=== PATIENT | female | born 1935 | race Caucasian/White ===

== ENCOUNTER 2016-09-01 19:42 | Inpatient (IN) | payer MEDICARE, OTHER ==
[2016-09-01 20:37] LABS: Basophils # (A) 0.1 k/uL (0-0.2); Basophils % (A) 1 %; CH 30.6; CHCM 33.5; Eosinophils # (A) 0.3 k/uL (0-0.7); Eosinophils % (A) 2 %; HCT 40.7 % (34.0-46.0); HDW 2.19; HGB 13.5 gm/dL (11.4-16.0); Immature Gran Flag Slight; Luc # (Auto) 0.33; Luc % (Auto) 2; Lymphocytes # (A) 2.7 k/uL (1.0-4.8); Lymphocytes % (A) 18 %; MCH 30.4 pg (25.0-35.0); MCHC 33.3 g/dL (31.0-37.0); MCV 91.5 fL (80.0-100.0); Mean Platelet Volume 7.7; Monocytes # (A) 1.2 k/uL (0-1.0); Monocytes % (A) 8 %; Neutrophils # (A) 10.1 k/uL (1.3-7.7); Neutrophils % (A) 69 %; RBC 4.44 m/uL (3.80-5.40); RDW 12.9 % (11.5-15.5); WBC 14.6 k/uL (3.8-10.6)
--- NOTE | 2016-09-01 20:38 | ED ---
General Adult HPI - General Chief complaint: Recheck/Abnormal Lab/Rx Stated complaint: Possible Sepsis Time Seen by Provider: 09/01/16 19:57 Source: EMS Mode of arrival: EMS Limitations: no limitations - History of Present Illness Initial comments: This patient is 80-year-old lady [facility] to be evaluated for possible mental status change and also that she had a pulse ox reading at 89%. The patient reportedly is currently being treated for urinary tract infection. The paperwork accompanying her documents culture and sensitivity that show sensitivity to the antibiotic she is currently taking. When I interview the patient, she is denying any symptoms at the moment. She denies pain anywhere. She denies dyspnea. She is denying nausea or vomiting. She states she feels well. -: unknown Associated Symptoms: denies other symptoms - Related Data Home Medications Medication Instructions Recorded Confirmed Bisacodyl 10 mg RECTAL DAILY PRN 09/01/16 09/01/16 Divalproex Sodium [Depakote] 500 mg PO BID 09/01/16 09/01/16 Fleet Enema 7-19gm/118ml 1 supp RECTAL DAILY PRN 09/01/16 09/01/16 Guaifenesin/Pseudoephedrne HCl 1 tab PO Q12H PRN 09/01/16 09/01/16 [Mucinex D ER Tablet] Levothyroxine Sodium [Synthroid] 88 mcg PO DAILY 09/01/16 09/01/16 Lisinopril [Prinivil] 10 mg PO DAILY 09/01/16 09/01/16 Magnesium Hydroxide [Milk of 30 ml PO DAILY PRN 09/01/16 09/01/16 Magnesia Concentrate] Multivitamins, Thera [Multivitamin 1 tab PO DAILY 09/01/16 09/01/16 (formulary)] Nystatin 100,000 Unit/gm Powd 1 applic TOPICAL BID 09/01/16 09/01/16 [Mycostatin Powder] Sertraline HCl [Zoloft] 50 mg PO QAM 09/01/16 09/01/16 Simvastatin [Zocor] 20 mg PO HS 09/01/16 09/01/16 Allergies Allergy/AdvReac Type Severity Reaction Status Date / Time No Known Allergies Allergy Verified 09/01/16 20:25 Review of Systems ROS Statement: Those systems with pertinent positive or pertinent negative responses have been documented in the HPI. ROS Other: All systems not noted in ROS Statement are negative. Constitutional: Denies: fever Respiratory: Denies: cough, dyspnea Cardiovascular: Denies: chest pain, orthopnea Gastrointestinal: Denies: abdominal pain, nausea, vomiting Musculoskeletal: Denies: back pain Neurological: Denies: headache, weakness Past Medical History Past Medical History: Diabetes Mellitus, Hyperlipidemia, Myocardial Infarction ( [place]) Additional Past Medical History / Comment(s): pulmonary HTN, chronic ischemic heart disease, falls, angina, aortic stenosis History of Any Multi-Drug Resistant Organisms: None Reported Past Surgical History: Unable to Obtain Past Psychological History: Depression Smoking Status: Never smoker Past Alcohol Use History: None Reported Past Drug Use History: None Reported General Exam Limitations: no limitations General appearance: alert, in no apparent distress, obese Head exam: Present: atraumatic, normocephalic Eye exam: Present: normal appearance. Absent: scleral icterus, conjunctival injection ENT exam: Present: normal oropharynx Neck exam: Present: full ROM. Absent: tenderness, meningismus Respiratory exam: Present: normal lung sounds bilaterally, rales (I lateral bases). Absent: respiratory distress, wheezes, rhonchi, stridor, accessory muscle use, decreased breath sounds, prolonged expiratory Cardiovascular Exam: Present: regular rate, normal rhythm, systolic murmur. Absent: normal heart sounds, diastolic murmur, rubs, gallop GI/Abdominal exam: Present: soft. Absent: distended, tenderness, guarding, rebound, rigid, mass, pulsatile mass, hernia Extremities exam: Present: normal inspection, normal capillary refill. Absent: pedal edema, calf tenderness Neurological exam: Present: alert, CN II-XII intact. Absent: oriented X3 ( Patient is oriented to person and place but could not state the exact date.), motor sensory deficit Psychiatric exam: Present: normal affect Skin exam: Present: warm, dry, intact, normal color. Absent: rash Course Vital Signs 09/01/16 09/01/16 09/01/16 20:03 20:31 21:29 Temperature 98.5 F 98.3 F Pulse Rate 100 101 H Respiratory 18 18 18 Rate Blood Pressure 125/58 117/71 O2 Sat by Pulse 94 L 95 Oximetry 09/01/16 23:16 Temperature Pulse Rate 101 H Respiratory 18 Rate Blood Pressure 104/58 O2 Sat by Pulse 95 Oximetry Medical Decision Making - Lab Data Result diagrams: 09/01/16 20:25 09/01/16 20:25 Lab Results 09/01/16 09/01/16 09/01/16 Range/Units 20:25 20:25 20:25 WBC 14.6 H (3.8-10.6) k/uL RBC 4.44 (3.80-5.40) m/uL Hgb 13.5 (11.4-16.0) gm/dL Hct 40.7 (34.0-46.0) % MCV 91.5 (80.0-100.0) fL MCH 30.4 (25.0-35.0) pg MCHC 33.3 (31.0-37.0) g/dL RDW 12.9 (11.5-15.5) % Plt Count 310 (150-450) k/uL Neutrophils % 69 % Lymphocytes % 18 % Monocytes % 8 % Eosinophils % 2 % Basophils % 1 % Neutrophils # 10.1 H (1.3-7.7) k/uL Lymphocytes # 2.7 (1.0-4.8) k/uL Monocytes # 1.2 H (0-1.0) k/uL Eosinophils # 0.3 (0-0.7) k/uL Basophils # 0.1 (0-0.2) k/uL Manual Slide Review Performed D-Dimer (<0.60) mg/L FEU Sodium (137-145) mmol/L Potassium (3.5-5.1) mmol/L Chloride (98-107) mmol/L Carbon Dioxide (22-30) mmol/L Anion Gap mmol/L BUN (7-17) mg/dL Creatinine (0.52-1.04) mg/dL Est GFR (MDRD) Af Amer (>60 ml/min/1.73 sqM) Est GFR (MDRD) Non-Af (>60 ml/min/1.73 sqM) Glucose (74-99) mg/dL Plasma Lactic Acid Martin 0.8 (0.7-2.0) mmol/L Calcium (8.4-10.2) mg/dL Total Bilirubin (0.2-1.3) mg/dL AST (14-36) U/L ALT (9-52) U/L Alkaline Phosphatase (38-126) U/L Total Creatine Kinase <20 L (30-135) U/L CK-MB (CK-2) 0.4 (0.0-2.4) ng/mL CK-MB (CK-2) Rel Index 0.0 Troponin I 0.030 (0.000-0.034) ng/mL Total Protein (6.3-8.2) g/dL Albumin (3.5-5.0) g/dL Urine Color Urine Appearance (Clear) Urine pH (5.0-8.0) Ur Specific [place] (1.001-1.035) Urine Protein (Negative) Urine Glucose (UA) (Negative) Urine Ketones (Negative) Urine Blood (Negative) Urine Nitrite (Negative) Urine Bilirubin (Negative) Urine Urobilinogen (<2.0) mg/dL Ur Leukocyte Esterase (Negative) Urine WBC (0-5) /hpf Ur Squamous Epith Cells (0-4) /hpf Urine Mucus (None) /hpf 09/01/16 09/01/16 09/01/16 Range/Units 20:25 20:25 22:05 WBC (3.8-10.6) k/uL RBC (3.80-5.40) m/uL Hgb (11.4-16.0) gm/dL Hct (34.0-46.0) % MCV (80.0-100.0) fL MCH (25.0-35.0) pg MCHC (31.0-37.0) g/dL RDW (11.5-15.5) % Plt Count (150-450) k/uL Neutrophils % % Lymphocytes % % Monocytes % % Eosinophils % % Basophils % % Neutrophils # (1.3-7.7) k/uL Lymphocytes # (1.0-4.8) k/uL Monocytes # (0-1.0) k/uL Eosinophils # (0-0.7) k/uL Basophils # (0-0.2) k/uL Manual Slide Review D-Dimer 2.78 H (<0.60) mg/L FEU Sodium 133 L (137-145) mmol/L Potassium 4.6 (3.5-5.1) mmol/L Chloride 100 (98-107) mmol/L Carbon Dioxide 23 (22-30) mmol/L Anion Gap 10 mmol/L BUN 60 H (7-17) mg/dL Creatinine 1.57 H (0.52-1.04) mg/dL Est GFR (MDRD) Af Amer 39 (>60 ml/min/1.73 sqM) Est GFR (MDRD) Non-Af 32 (>60 ml/min/1.73 sqM) Glucose 90 (74-99) mg/dL Plasma Lactic Acid Martin (0.7-2.0) mmol/L Calcium 8.7 (8.4-10.2) mg/dL Total Bilirubin 0.7 (0.2-1.3) mg/dL AST 49 H (14-36) U/L ALT 31 (9-52) U/L Alkaline Phosphatase 63 (38-126) U/L Total Creatine Kinase (30-135) U/L CK-MB (CK-2) (0.0-2.4) ng/mL CK-MB (CK-2) Rel Index Troponin I (0.000-0.034) ng/mL Total Protein 6.2 L (6.3-8.2) g/dL Albumin 2.7 L (3.5-5.0) g/dL Urine Color Yellow Urine Appearance Clear (Clear) Urine pH 5.5 (5.0-8.0) Ur Specific [place] 1.021 (1.001-1.035) Urine Protein Trace H (Negative) Urine Glucose (UA) Negative (Negative) Urine Ketones Negative (Negative) Urine Blood Negative (Negative) Urine Nitrite Negative (Negative) Urine Bilirubin Negative (Negative) Urine Urobilinogen <2.0 (<2.0) mg/dL Ur Leukocyte Esterase Moderate H (Negative) Urine WBC 14 H (0-5) /hpf Ur Squamous Epith Cells <1 (0-4) /hpf Urine Mucus Rare H (None) /hpf Disposition Clinical Impression: Elevated d-dimer Disposition: ADMITTED IP TO THIS HOSP Condition: Fair
[2016-09-01 20:46] LABS: Calcium 8.7 mg/dL (8.4-10.2); Potassium 4.6 mmol/L (3.5-5.1); Total Bilirubin 0.7 mg/dL (0.2-1.3); Total Protein 6.2 g/dL (6.3-8.2)
--- NOTE | 2016-09-01 20:51 | XR ---
EXAMINATION TYPE: XR chest 1V portable DATE OF EXAM: 09/01/2016 8:46 PM HISTORY: Shortness of breath. COMPARISON: 06/26/2012 TECHNIQUE: Single view of the chest is submitted. FINDINGS: Demonstrated are scattered senescent parenchymal change. There is no evidence for focal infiltrate. The heart is stable. Hilar and mediastinal structures are within normal limits. Degenerative changes are seen of the dorsal spine. IMPRESSION: 1. Chronic changes without evidence for acute pulmonary disease.
[2016-09-01 20:57] LABS: Manual Review Performed
[2016-09-01 20:58] LABS: Creatine Kinase <20 U/L (30-135)
[2016-09-01 21:10] LABS: Creatine Kinase MB 0.4 ng/mL (0.0-2.4)
[2016-09-01] MEDS ORDERED: SODIUM CHLORIDE 0.9% 500 ML IV STA (21:30)
[2016-09-01 22:21] LABS: Appearance,Urine Clear (Clear); Bilirubin,Urine Negative (Negative); Glucose,Urine (UA) Negative (Negative); Ketones,Urine Negative (Negative); Leukocyte Esterase,Urine Moderate (Negative); Mucus,Urine Rare /hpf; Nitrite,Urine Negative (Negative); PH, Urine 5.5 (5.0-8.0); Particle Count 5795; Protein,Urine Trace (Negative); Specific Gravity,Urine 1.021 (1.001-1.035); Squamous Epithelial Cell,Urine <1 /hpf (0-4); UA Billing (MACRO vs. MICRO) MICRO; Urobilinogen,Urine <2.0 mg/dL (<2.0); WBC,Urine 14 /hpf (0-5)
[2016-09-01] MEDS ORDERED: ENOXAPARIN 100 MG/ML SYRINGE SQ STA (22:36)
[2016-09-02] MEDS ORDERED: ONDANSETRON 4 MG/2 ML VIAL IVP PRN (00:24)
[2016-09-02] MEDS ORDERED: NALOXONE 0.4 MG/ML 1 ML VIAL IV PRN (00:24)
[2016-09-02] MEDS ORDERED: ACETAMINOPHEN TAB 325 MG TAB PO PRN (00:24)
[2016-09-02] MEDS ORDERED: BISACODYL 10 MG SUPP RECTAL PRN (00:28)
[2016-09-02] MEDS ORDERED: MAGNESIUM HYDROXIDE 2,400 MG/10 ML CUP PO PRN (00:28)
[2016-09-02] MEDS ORDERED: guaiFENesin 600 MG TABLET.ER PO PRN ×2 (00:28→01:10)
[2016-09-02] MEDS ORDERED: ENOXAPARIN 40 MG/0.4 ML SYRINGE SQ SCH (00:30)
[2016-09-02] MEDS: SODIUM CHLORIDE 0.9% 1,000 ML IV SCH ×3 (00:51→18:05)
[2016-09-02] MEDS ORDERED: ENOXAPARIN 100 MG/ML SYRINGE SQ SCH (01:07)
[2016-09-02] MEDS ORDERED: PSEUDOEPHEDRINE 12HR 120 MG TABLET.ER PO PRN (01:09)
[2016-09-02] MEDS ORDERED: LISINOPRIL 10 MG TAB PO SCH (09:00)
[2016-09-02] MEDS: SERTRALINE 50 MG TAB PO SCH (09:05)
[2016-09-02] MEDS: LEVOTHYROXINE 88 MCG TAB PO SCH (09:05)
[2016-09-02] MEDS: DIVALPROEX 500 MG TABLET.DR PO SCH ×2 (09:05→22:42)
[2016-09-02] MEDS: MULTIVITAMINS, THERA 1 EACH TAB PO SCH (09:05)
--- NOTE | 2016-09-02 11:21 | NM ---
EXAMINATION TYPE: NM pul vent and perfuse DATE OF EXAM: 09/02/2016 10:57 AM COMPARISON: Chest x-ray 09/01/2016 HISTORY: Rule out PE. No additional history is provided TECHNIQUE: Utilizing inhalation of 70.9 mCi Tc 99m DTPA aerosol and intravenous injection of 5.5 mCi of Tc 99m MAA, ventilation and perfusion images are acquired post injection in multiple projections. FINDINGS: There is a moderate size fixed defect along the posterior medial segment left lower lobe. In the LPO position and a second moderate fixed defect appears to be present. No triple matched defect is eviden t. IMPRESSION: Intermediate probability for pulmonary embolism.
[2016-09-02] MEDS: NYSTATIN 100,000 UNIT/GM POWD 15 GM TOPICAL SCH ×2 (11:33→22:43)
[2016-09-02 13:22] VITALS: BMI 32.3
--- NOTE | 2016-09-02 18:24 | HP ---
DATE OF ADMISSION: 09/02/2016 PRESENTING COMPLAINT: Altered mental status. HISTORY OF PRESENTING COMPLAINT: This is a 80-year-old patient sent in from [facility], being followed by Dr. Campbell. Patient's chronic stable medical conditions include diabetes mellitus, type 2, hyperlipidemia, hypertension, osteoarthritis, seizure disorder, hypothyroid, aortic stenosis, stroke in 2009 with some weakness on the left side, hiatal hernia, diverticulosis, GI bleeds. Patient is a resident of [facility]. Does use a wheelchair. Patient was sent in because of mental status changes. Patient is just speaking very slowly, not answering much, though awake. Her aide at the bedside is trying to feed the patient. Really not much history can be obtained from the patient. Review of systems cannot be obtained, as the patient is hardly talking. PAST MEDICAL HISTORY: 1. Diabetes mellitus, type 2. 2. Hyperlipidemia. 3. Hypertension. 4. Coronary artery disease. 5. Myocardial infarction. 6. Osteoarthritis. 7. Seizure disorder. 8. Hypothyroid. 9. Polyneuropathy. 10. Currently being treated for UTI. 11. Aortic stenosis. 12. Stroke with some left-sided weakness. 13. Hiatal hernia. 14. Diverticulosis. 15. Arthritis. 16. Psoriasis. PAST SURGICAL HISTORY: 1. Cardiac catheterization ( ) 2. Hysterectomy. 3. Tubal ligation. 4. Bilateral cataract removal. SOCIAL HISTORY: Uses a wheelchair. Needs assistance with ADLs. No smoking. No alcohol. FAMILY HISTORY: Patient cannot tell. HOME MEDICATIONS: 1. Zocor 20 mg at bedtime. 2. Zoloft 50 mg p.o. daily. 3. Nystatin 1 application topically b.i.d. 4. Multivitamin 1 tablet p.o. daily. 5. Magnesium 30 mL p.o. daily p.r.n. 6. Prinivil 10 mg p.o. daily. 7. Synthroid 88 mcg p.o. daily. 8. Mucinex 1 tablet q.12 p.r.n. 9. Fleet enema daily p.r.n. 10. Depakote 500 mg p.o. b.i.d. 11. Dulcolax p.r.n. ALLERGIES: NONE. PHYSICAL EXAMINATION: VITAL SIGNS ON PRESENTATION: Temperature 98.5, pulse 100, respiration 18, blood pressure 120/58, pulse ox 94% on room air. GENERAL APPEARANCE: Well built; BMI of 32.3. Sitting up in bed. Tired, lethargic. EYES: Pupils equal. Conjunctivae normal. HEENT: External appearance of nose and ears normal. Oral cavity dry. NECK: JVD not raised. Mass not palpable. RESPIRATORY: Effort normal. LUNGS: Fair air entry. CARDIOVASCULAR: First and second sounds normal. No edema. ABDOMEN: Soft, nontender. Liver and spleen not palpable. LYMPHATIC: No lymph node palpable in neck or axillae. PSYCHIATRY: Patient does answer simple questions, but speech is rather slow. NEUROLOGICAL: Power on the left side is 4/5. No facial asymmetry. MUSCULOSKELETAL: Evidence of osteoarthritis, especially in hands and knees. INVESTIGATIONS: White count 14.6, hemoglobin 13.5. Potassium 4.6. BUN 16, creatinine 1.57. UA positive for leukocyte esterase, WBC. Patient's BUN and creatinine on 07/01/16 were 24 and 1.14. ASSESSMENT: 1. Patient presented with altered mental status, rather lethargic; probably acute metabolic encephalopathy from underlying urinary tract infection. 2. Possibly acute renal failure. Patient's creatinine has gone up from 1.14 in June of this year to currently to 1.57. This could well be prerenal. 3. Hyperlipidemia. 4. Chronic epilepsy. 5. Hypothyroidism. 6. Essential hypertension. 7. Medical debility; needs assistance. 8. Depression not otherwise specified. PLAN: Urine cultures are pending. Will put the patient on ceftriaxone, give IV fluids. Home medications are resumed. Will discontinue the Sudafed. Also hold off patient's Zestril as renal offending. Patient needs at least 2 nights in the hospital to take care of the metabolic derangement and her overall condition.
[2016-09-02] MEDS: ATORVASTATIN 10 MG TAB PO SCH (22:42)
[2016-09-02] MEDS: ENOXAPARIN 100 MG/ML SYRINGE SQ SCH (22:42)
[2016-09-03] MEDS: LEVOTHYROXINE 88 MCG TAB PO SCH (08:59)
[2016-09-03] MEDS: DIVALPROEX 500 MG TABLET.DR PO SCH ×2 (08:59→20:32)
[2016-09-03] MEDS: SERTRALINE 50 MG TAB PO SCH (08:59)
[2016-09-03] MEDS: MULTIVITAMINS, THERA 1 EACH TAB PO SCH (08:59)
[2016-09-03] MEDS: SODIUM CHLORIDE 0.9% 1,000 ML IV SCH ×5 (09:00→20:36)
[2016-09-03] MEDS: NYSTATIN 100,000 UNIT/GM POWD 15 GM TOPICAL SCH ×2 (09:02→20:32)
[2016-09-03 09:22] LABS: Calcium 8.6 mg/dL (8.4-10.2); Potassium 4.9 mmol/L (3.5-5.1)
[2016-09-03 09:49] LABS: CH 30.5; CHCM 31.9; HCT 38.7 % (34.0-46.0); HDW 2.03; HGB 12.4 gm/dL (11.4-16.0); Immature Gran Flag Marked; MCH 30.8 pg (25.0-35.0); MCHC 32.1 g/dL (31.0-37.0); RBC 4.03 m/uL (3.80-5.40); RDW 13.6 % (11.5-15.5); WBC 14.7 k/uL (3.8-10.6); WBC (Perox) 14.61
[2016-09-03 11:23] LABS: Add Differential Manual Differential
[2016-09-03 11:27] LABS: Nucleated Red Blood Cells 0 /100 WBC (0-0); Total Cells Counted 200
[2016-09-03 11:28] LABS: Toxic Granulation Present
[2016-09-03] MEDS: ATORVASTATIN 10 MG TAB PO SCH (20:32)
[2016-09-03] MEDS: ENOXAPARIN 100 MG/ML SYRINGE SQ SCH (20:32)
[2016-09-04 07:47] VITALS: BP 132/78; PULSE 109; RESP 20; TEMP 98.2
[2016-09-04] MEDS: NYSTATIN 100,000 UNIT/GM POWD 15 GM TOPICAL SCH (07:59)
[2016-09-04] MEDS: DIVALPROEX 500 MG TABLET.DR PO SCH (07:59)
[2016-09-04] MEDS: SERTRALINE 50 MG TAB PO SCH (07:59)
[2016-09-04] MEDS: LEVOTHYROXINE 88 MCG TAB PO SCH (07:59)
[2016-09-04] MEDS: MULTIVITAMINS, THERA 1 EACH TAB PO SCH (08:02)
[2016-09-04] MEDS: SODIUM CHLORIDE 0.9% 1,000 ML IV SCH (08:05)
--- NOTE | 2016-09-04 09:01 | PN ---
DATE OF SERVICE: 09/03/2016 PRESENTING COMPLAINT: Altered mental status. INTERVAL HISTORY: This is a 80-year-old woman who was brought into the emergency department after she was found wandering in the street. Patient is resident of [facility]. Patient is lying in bed, awake, alert. Her mood is flat. She is tearful at times, concerned for her . Patient is calm and cooperative yet tearful during the exam. Review of systems done for constitutional, cardiovascular, GI, pulmonary with relevant findings listed above. CURRENT MEDICATIONS: Zocor, Zoloft, nystatin, magnesium, Prinivil, Synthroid, Mucinex, Fleet's enema, Depakote, Dulcolax suppository. PHYSICAL EXAMINATION: VITAL SIGNS: Temperature 99.2, pulse 92, respirations 18, blood pressure 127/71, oxygen saturation 94% on room air. GENERAL APPEARANCE: Patient lying in bed tired, tearful, conversant. Mood is flat. EYES: Pupils equal. Conjunctivae normal. NECK: JVD not raised. Mass not palpable. Respiratory effort normal. Lungs diminished bases bilaterally fair airway exchange CARDIOVASCULAR: S1, S2 noted and normal. No edema noted. ABDOMEN: Soft, nontender. Liver and spleen are not palpable. PSYCHIATRIC: Patient is able to answer simple questions today. Speech is rather slow. Affect is flat. INVESTIGATIONS: White blood cell count 14.7, BUN 38, creatinine 1.28 improved from yesterday's value. VQ scan from 09/02/2016 reveals a moderate fixed size defect along the posterior medial segment lower left lobe in the LPO position and there is a second moderate fixed defect that appears to be present. No triple matched defect is evident. Overall impression: Intermediate probability for a pulmonary embolus. ASSESSMENT: 1. Patient presented to the emergency department with altered mental status at that time rather lethargic, probably acute metabolic encephalopathy from underlying urinary tract infection. 2. Possible acute renal failure. Creatinine has risen from 1.14 in June of this year to its current level of 1.28. This could be prerenal. 3. Hyperlipidemia. 4. Chronic epilepsy. 5. Hypothyroidism. 6. Essential hypertension. 7. Medical debility. Patient needs assistance. 8. Depression, not otherwise specified. PLAN: Urine cultures currently not showing any growth. Ceftriaxone was discontinued. Family wishes for the patient to be placed back at [facility].
[2016-09-04 09:23] LABS: CHCM 30.9; HCT 36.3 % (34.0-46.0); HDW 2.03; HGB 11.7 gm/dL (11.4-16.0); MCH 31.2 pg (25.0-35.0); MCHC 32.1 g/dL (31.0-37.0); MCV 97.3 fL (80.0-100.0); Mean Platelet Volume 7.4; RBC 3.73 m/uL (3.80-5.40); RDW 13.3 % (11.5-15.5); WBC 17.5 k/uL (3.8-10.6)
[2016-09-04 09:41] LABS: Calcium 8.5 mg/dL (8.4-10.2); Potassium 4.7 mmol/L (3.5-5.1)
[2016-09-04 12:00] LABS: Glucose,Whole Blood 86 mg/dL (75-99)
--- NOTE | 2016-09-04 16:43 | DS ---
DATE OF ADMISSION: 09/02/2016 DATE OF DISCHARGE: FINAL DIAGNOSIS(ES): 1. Acute metabolic encephalopathy from underlying acute urinary tract infection. 2. Acute urinary tract infection, present on admission. 3. Acute renal failure, likely prerenal from decreased oral intake. 4. Hyperlipidemia. 5. Chronic epilepsy. 6. Hypothyroidism. 7. Essential hypertension. 8. Medical debility, needs maintenance assistant. 9. Depression not anxiety, not otherwise specified. HOSPITAL COURSE: This patient with mental status changes, found to have acute metabolic encephalopathy combination of patient is having urinary tract infection and also creatinine going up, had gone up to about 1.7 by the time of discharge. Creatinine did come down to 1.20. Blood pressure is better controlled. Lisinopril has been held. Urine culture was negative. The patient doing much better. Tolerating a diet better at the time of discharge. On examination, LUNGS: Fair air entry. CARDIOVASCULAR: First and second sounds normal. Patient is answering simple questions. Care was discussed with the nurse. Discharge planning with the employment case manager and liaison. Discharge planning more than 35 minutes. Patient's BUN and creatinine now 26/1.20. LABS: CBC, BMP in 3 days. DISCHARGE MEDICATIONS: 1. Dulcolax 10 mg rectal daily p.r.n. 2. Depakote 500 mg p.o. b.i.d. 3. Fleets enema p.r.n. 4. Synthroid 88 mcg a day. 5. Multivitamin 1 tablet p.o. daily. 6. Nystatin topical powder b.i.d. 7. Zoloft 50 mg p.o. daily. 8. Zocor 20 mg p.o. q.h.s. 9. Ceftin 250 mg p.o. b.i.d.; 10 tablets. DISPOSITION: [facility]. Follow-up with Dr. Campbell. LABS: CBC, BMP in 3 days. Feeding with assistance as before.
[2016-09-04] MEDS ORDERED: ENOXAPARIN 100 MG/ML SYRINGE SQ SCH (18:00)
--- NOTE | 2016-10-01 06:08 | PN ---
DATE OF SERVICE: 09/03/2016 ATTENDING NOTE: This patient examined by me on 09/03/16. I reviewed the note of my nurse practitioner, Ms. Lepe. I discussed and agree with the same. Patient has got dementia. Lying in bed. Mood fluctuates a bit. On examination, blood pressure 127/71, pulse 92. On examination, lungs decreased breath sounds. CARDIOVASCULAR: First and second sounds normal. PSYCH: Patient is able to answer simple questions. Labs and investigations are noted. ASSESSMENT: 1. Possibly acute metabolic encephalopathy from underlying urinary tract infection. 2. Possible acute renal failure. PLAN: Ceftriaxone will be discontinued. Looking at patient going to [facility].
== END 2016-09-04 18:45 | DRG 682 ==
LOC: EC 19:42 → 5MS5E 09-02 00:30
PROVIDERS: ADMIT Hospitalist; ATTEND Hospitalist
DX: N17.8 Other acute kidney failure (principal); G93.41 Metabolic encephalopathy; I27.2 Other secondary pulmonary hypertension; E11.42 Type 2 diabetes mellitus with diabetic polyneuropathy; N39.0 Urinary tract infection, site not specified; I69.354 Hemiplegia and hemiparesis following cerebral infarction affecting left non-dominant side; G40.909 Epilepsy, unspecified, not intractable, without status epilepticus; I35.0 Nonrheumatic aortic (valve) stenosis; I10 Essential (primary) hypertension; T46.4X5A Adverse effect of angiotensin-converting-enzyme inhibitors, initial encounter; K57.90 Diverticulosis of intestine, part unspecified, without perforation or abscess without bleeding; K44.9 Diaphragmatic hernia without obstruction or gangrene; E03.9 Hypothyroidism, unspecified; I25.10 Atherosclerotic heart disease of native coronary artery without angina pectoris; I25.2 Old myocardial infarction; E78.5 Hyperlipidemia, unspecified; L40.9 Psoriasis, unspecified; F32.9 Major depressive disorder, single episode, unspecified; R29.6 Repeated falls; M17.0 Bilateral primary osteoarthritis of knee; M19.041 Primary osteoarthritis, right hand; M19.042 Primary osteoarthritis, left hand; Z79.899 Other long term (current) drug therapy; Z91.83 Wandering in diseases classified elsewhere; Z91.81 History of falling; Z98.42 Cataract extraction status, left eye; Z98.41 Cataract extraction status, right eye; Z98.51 Tubal ligation status; Z90.710 Acquired absence of both cervix and uterus; Z87.19 Personal history of other diseases of the digestive system
CPT/HCPCS: 36415; 71010; 78582; 80048; 80053; 80164; 81001; 82550; 82553; 83605; 84484; 85025; 85027; 85379; 87040; 87086; 96372; 99285

== ENCOUNTER 2016-10-15 12:25 | Inpatient (IN) | payer MEDICARE, OTHER ==
[2016-10-15] MEDS ORDERED: HEPARIN SODIUM,PORCINE 5,000 UNIT/ML 1 ML VIAL IV STA (13:25)
[2016-10-15] MEDS ORDERED: HEPARIN SODIUM,PORCINE/D5W PMX 25,000 UNIT in DEXTROSE/WATER 1 500ML.BAG IV SCH (13:25)
[2016-10-15 14:10] LABS: Basophils # (A) 0.1 k/uL (0-0.2); Basophils % (A) 1 %; CH 30.5; CHCM 32.3; Eosinophils # (A) 0.1 k/uL (0-0.7); Eosinophils % (A) 1 %; HCT 35.8 % (34.0-46.0); HDW 2.41; HGB 11.5 gm/dL (11.4-16.0); Luc # (Auto) 0.17; Luc % (Auto) 1; Lymphocytes # (A) 2.7 k/uL (1.0-4.8); Lymphocytes % (A) 22 %; MCH 30.5 pg (25.0-35.0); MCHC 32.2 g/dL (31.0-37.0); MCV 94.6 fL (80.0-100.0); Mean Platelet Volume 7.8; Monocytes # (A) 1.4 k/uL (0-1.0); Monocytes % (A) 12 %; Neutrophils # (A) 7.7 k/uL (1.3-7.7); Neutrophils % (A) 64 %; RBC 3.79 m/uL (3.80-5.40); RDW 13.7 % (11.5-15.5); WBC (Perox) 12.72
--- NOTE | 2016-10-15 14:15 | ED ---
General Adult HPI - General Chief complaint: Extremity Problem,Nontraumatic Stated complaint: DVT Time Seen by Provider: 10/15/16 13:05 Source: patient, EMS, RN notes reviewed, old records reviewed Mode of arrival: EMS Limitations: altered mental status, physical limitation - History of Present Illness Initial comments: patient 81-year-old female with significant past medical history for CVA, dementia, who presents emergency room today by EMS with chief complaint of positive ultrasound for DVT to the left lower extremity. Patient coming from halfway. Patient does have a history of dementia providing little history. She denies any complaints here in the emergency room. She does admit that she's had some swelling here to the lower leg but denies any pain. She denies any shortness of breath. Denies any history of blood clots. EMS did state that they hooked her up to the EKG and felt that they picked up a rhythm of A. fib. Patient has no documented history of this in she herself is unaware of any history of A. fib. She denies any complaints. Patient denies any recent fever, chills, shortness of breath, chest pain, back pain, abdominal pain, nausea or vomiting, numbness or tingling, dysuria or hematuria, constipation or diarrhea, headaches or visual changes, or any other complaints. - Related Data Home Medications Medication Instructions Recorded Confirmed Bisacodyl 10 mg RECTAL DAILY PRN 09/01/16 10/15/16 Divalproex Sodium [Depakote] 500 mg PO BID 09/01/16 10/15/16 Fleet Enema 7-19gm/118ml 1 supp RECTAL DAILY PRN 09/01/16 10/15/16 Levothyroxine Sodium [Synthroid] 88 mcg PO DAILY 09/01/16 10/15/16 Magnesium Hydroxide [Milk of 30 ml PO DAILY PRN 09/01/16 10/15/16 Magnesia Concentrate] Multivitamins, Thera [Multivitamin 1 tab PO DAILY 09/01/16 10/15/16 (formulary)] Nystatin 100,000 Unit/gm Powd 1 applic TOPICAL BID 09/01/16 10/15/16 [Mycostatin Powder] Sertraline HCl [Zoloft] 50 mg PO QAM 09/01/16 10/15/16 Simvastatin [Zocor] 20 mg PO HS 09/01/16 10/15/16 Lisinopril [Prinivil] 10 mg PO DAILY 10/15/16 10/15/16 guaiFENesin [Mucinex] 600 mg PO Q12H PRN 10/15/16 10/15/16 Allergies Allergy/AdvReac Type Severity Reaction Status Date / Time No Known Allergies Allergy Verified 10/15/16 14:25 Review of Systems ROS Statement: Those systems with pertinent positive or pertinent negative responses have been documented in the HPI. ROS Other: All systems not noted in ROS Statement are negative. Past Medical History Past Medical History: Chest Pain / Angina, Diabetes Mellitus, Hyperlipidemia, Hypertension, Myocardial Infarction ([place]), Osteoarthritis ([place]), Pneumonia, Seizure Disorder, Skin Disorder, Thyroid Disorder Additional Past Medical History / Comment(s): NIDDM type II, polyneuropathies, UTI, ischemic heart dx, aortic stenosis, 2009 CVA-pt states slurred speech and weakness L arm/L leg, 2012 TIA, hypothyroidism, hiatal hernia, diverticular dx, lower GI bleed thought d/t divertic dx, arthritis of multiple joints, UTIs, psoriasis, falls, muscle weakness. Last Myocardial Infarction Date:: Unknown History of Any Multi-Drug Resistant Organisms: None Reported Past Surgical History: Heart Catheterization, Hysterectomy, Tubal Ligation Additional Past Surgical History / Comment(s): Bilateral cataract removal, EGD/ colonoscopy 2010. Past Anesthesia/Blood Transfusion Reactions: No Reported Reaction Past Psychological History: Anxiety, Depression Additional Psychological History / Comment(s): Pt resides at [facility]. She has been there since 2009. She uses a wheelchair. She needs assist with ADLs. Smoking Status: Never smoker Past Alcohol Use History: None Reported Past Drug Use History: None Reported - Past Family History Father History Unknown: Yes Family Medical History: Unable to Obtain Mother History Unknown: Yes Family Medical History: Unable to Obtain General Exam - General Exam Comments Initial Comments: General: The patient is awake and alert, in no distress, and does not appear acutely ill. Eye: Pupils are equal, round and reactive to light, extra-ocular movements are intact. No nystagmus. There is normal conjunctiva bilaterally. No signs of icterus. Ears, nose, mouth and throat: There are moist mucous membranes and no oral lesions. Neck: The neck is supple, there is no tenderness or JVD. Cardiovascular: There is a regular rate and rhythm. No murmur, rub or gallop is appreciated. Respiratory: Lungs are clear to auscultation, respirations are non-labored, breath sounds are equal. No wheezes, stridor, rales, or rhonchi. Gastrointestinal: Soft, non-distended, non-tender abdomen without masses or organomegaly noted. There is no rebound or guarding present. No CVA tenderness. Bowel sounds are unremarkable. Musculoskeletal: Normal ROM, no tenderness. Strength 5/5. Sensation intact. Pulses equal bilaterally 2+. patient does have moderate swelling to the left leg when compared bilaterally. Neurological: A&O x 3. CN II-XII intact, There are no obvious motor or sensory deficits. Coordination appears grossly intact. Speech is normal. Skin: Skin is warm and dry and no rashes or lesions are noted. Psychiatric: Cooperative, appropriate mood & affect, normal judgment. Limitations: altered mental status, physical limitation Course Vital Signs 10/15/16 10/15/16 12:31 14:00 Temperature 96.9 F L Pulse Rate 105 H 99 Respiratory 20 18 Rate Blood Pressure 134/64 130/72 O2 Sat by Pulse 98 95 Oximetry EKG Findings - EKG Comments: EKG Findings:: EKG performed at 1312: Does show A. fib with occasional PVC at 94 bpm. QRS is 102. QT/QTc is 348/435. EKG compared to previous EKG on 2012 which shows no evidence of A. fib at that time. Medical Decision Making - Medical Decision Making patient does have an outpatient ultrasound which was performed and does show evidence for DVT to the left leg from left groin to left ankle. Patient EKG performed here today and does show evidence for new onset A. fib. There is no documented history and patient is unaware of any. Clerk Entry Level EKG does not show any evidence for A. fib. Patient has been started on heparin here in the emergency room. She will be admitted to the hospital. - Lab Data Result diagrams: 10/15/16 13:45 10/15/16 13:45 Lab Results 10/15/16 10/15/16 10/15/16 Range/Units 13:45 13:45 13:45 WBC 12.0 H (3.8-10.6) k/uL RBC 3.79 L (3.80-5.40) m/uL Hgb 11.5 (11.4-16.0) gm/dL Hct 35.8 (34.0-46.0) % MCV 94.6 (80.0-100.0) fL MCH 30.5 (25.0-35.0) pg MCHC 32.2 (31.0-37.0) g/dL RDW 13.7 (11.5-15.5) % Plt Count 316 (150-450) k/uL Neutrophils % 64 % Lymphocytes % 22 % Monocytes % 12 % Eosinophils % 1 % Basophils % 1 % Neutrophils # 7.7 (1.3-7.7) k/uL Lymphocytes # 2.7 (1.0-4.8) k/uL Monocytes # 1.4 H (0-1.0) k/uL Eosinophils # 0.1 (0-0.7) k/uL Basophils # 0.1 (0-0.2) k/uL PT (9.0-12.0) sec INR (<1.1) APTT (22.0-30.0) sec Sodium 134 L (137-145) mmol/L Potassium 4.5 (3.5-5.1) mmol/L Chloride 97 L (98-107) mmol/L Carbon Dioxide 27 (22-30) mmol/L Anion Gap 10 mmol/L BUN 27 H (7-17) mg/dL Creatinine 1.05 H (0.52-1.04) mg/dL Est GFR (MDRD) Af Amer >60 (>60 ml/min/1.73 sqM) Est GFR (MDRD) Non-Af 51 (>60 ml/min/1.73 sqM) Glucose 101 H (74-99) mg/dL Calcium 8.9 (8.4-10.2) mg/dL Total Bilirubin 0.7 (0.2-1.3) mg/dL AST 35 (14-36) U/L ALT 24 (9-52) U/L Alkaline Phosphatase 62 (38-126) U/L Total Creatine Kinase <20 L (30-135) U/L CK-MB (CK-2) 0.4 (0.0-2.4) ng/mL CK-MB (CK-2) Rel Index 0.0 Troponin I 0.019 (0.000-0.034) ng/mL Total Protein 6.3 (6.3-8.2) g/dL Albumin 2.7 L (3.5-5.0) g/dL Urine Color Urine Appearance (Clear) Urine pH (5.0-8.0) Ur Specific [place] (1.001-1.035) Urine Protein (Negative) Urine Glucose (UA) (Negative) Urine Ketones (Negative) Urine Blood (Negative) Urine Nitrite (Negative) Urine Bilirubin (Negative) Urine Urobilinogen (<2.0) mg/dL Ur Leukocyte Esterase (Negative) Urine RBC (0-5) /hpf Urine WBC (0-5) /hpf Urine WBC Clumps (None) /hpf Ur Squamous Epith Cells (0-4) /hpf Urine Bacteria (None) /hpf 10/15/16 10/15/16 Range/Units 13:45 14:19 WBC (3.8-10.6) k/uL RBC (3.80-5.40) m/uL Hgb (11.4-16.0) gm/dL Hct (34.0-46.0) % MCV (80.0-100.0) fL MCH (25.0-35.0) pg MCHC (31.0-37.0) g/dL RDW (11.5-15.5) % Plt Count (150-450) k/uL Neutrophils % % Lymphocytes % % Monocytes % % Eosinophils % % Basophils % % Neutrophils # (1.3-7.7) k/uL Lymphocytes # (1.0-4.8) k/uL Monocytes # (0-1.0) k/uL Eosinophils # (0-0.7) k/uL Basophils # (0-0.2) k/uL PT 11.2 (9.0-12.0) sec INR 1.1 (<1.1) APTT 24.5 (22.0-30.0) sec Sodium (137-145) mmol/L Potassium (3.5-5.1) mmol/L Chloride (98-107) mmol/L Carbon Dioxide (22-30) mmol/L Anion Gap mmol/L BUN (7-17) mg/dL Creatinine (0.52-1.04) mg/dL Est GFR (MDRD) Af Amer (>60 ml/min/1.73 sqM) Est GFR (MDRD) Non-Af (>60 ml/min/1.73 sqM) Glucose (74-99) mg/dL Calcium (8.4-10.2) mg/dL Total Bilirubin (0.2-1.3) mg/dL AST (14-36) U/L ALT (9-52) U/L Alkaline Phosphatase (38-126) U/L Total Creatine Kinase (30-135) U/L CK-MB (CK-2) (0.0-2.4) ng/mL CK-MB (CK-2) Rel Index Troponin I (0.000-0.034) ng/mL Total Protein (6.3-8.2) g/dL Albumin (3.5-5.0) g/dL Urine Color Yellow Urine Appearance Cloudy H (Clear) Urine pH 6.5 (5.0-8.0) Ur Specific [place] 1.013 (1.001-1.035) Urine Protein 1+ H (Negative) Urine Glucose (UA) Negative (Negative) Urine Ketones Negative (Negative) Urine Blood Trace H (Negative) Urine Nitrite Negative (Negative) Urine Bilirubin Negative (Negative) Urine Urobilinogen 3.0 (<2.0) mg/dL Ur Leukocyte Esterase Large H (Negative) Urine RBC 5 (0-5) /hpf Urine WBC >182 H (0-5) /hpf Urine WBC Clumps Many H (None) /hpf Ur Squamous Epith Cells 17 H (0-4) /hpf Urine Bacteria Moderate H (None) /hpf Disposition Clinical Impression: DVT (deep venous thrombosis), New onset a-fib, UTI (urinary tract infection) Disposition: ADMITTED IP TO THIS HOSP Condition: Stable Referrals: Florian Campbell DO [Primary Care Provider] - 1-2 days Time of Disposition: 15:45
[2016-10-15 14:24] LABS: ALT 24 U/L (9-52); AST 35 U/L (14-36); Alkaline Phosphatase 62 U/L (38-126); Anion Gap 10 mmol/L; Blood Urea Nitrogen 27 mg/dL (7-17); Calcium 8.9 mg/dL (8.4-10.2); Carbon Dioxide 27 mmol/L (22-30); Chloride 97 mmol/L (98-107); Glucose 101 mg/dL (74-99); Non-African American GFR(MDRD) 51 (>60 ml/min/1.73 sqM); Potassium 4.5 mmol/L (3.5-5.1); Sodium 134 mmol/L (137-145); Total Bilirubin 0.7 mg/dL (0.2-1.3); Total Protein 6.3 g/dL (6.3-8.2)
[2016-10-15 14:26] LABS: INR 1.1 (<1.1); Partial Thromboplastin Time 24.5 sec (22.0-30.0); Prothrombin Time 11.2 sec (9.0-12.0)
[2016-10-15 14:31] LABS: Appearance,Urine Cloudy (Clear); Bacteria,Urine Moderate /hpf; Bilirubin,Urine Negative (Negative); Glucose,Urine (UA) Negative (Negative); Ketones,Urine Negative (Negative); Leukocyte Esterase,Urine Large (Negative); Nitrite,Urine Negative (Negative); PH, Urine 6.5 (5.0-8.0); Particle Count 12834; Protein,Urine 1+ (Negative); RBC,Urine 5 /hpf (0-5); Specific Gravity,Urine 1.013 (1.001-1.035); Squamous Epithelial Cell,Urine 17 /hpf (0-4); UA Billing (MACRO vs. MICRO) MICRO; WBC,Urine >182 /hpf (0-5)
[2016-10-15 14:36] LABS: Creatine Kinase <20 U/L (30-135)
[2016-10-15 14:49] LABS: Creatine Kinase MB 0.4 ng/mL (0.0-2.4); Troponin I 0.019 ng/mL (0.000-0.034)
--- NOTE | 2016-10-15 15:29 | XR ---
EXAMINATION TYPE: XR chest 2V DATE OF EXAM: 10/15/2016 COMPARISON: Chest x-ray September 01, 2016. HISTORY: Atrial fibrillation. TECHNIQUE: Frontal and lateral views of the chest are obtained. FINDINGS: Improved inspiration on current study is seen. There is chronic parenchymal change without suspicious focal air space opacity, pleural effusion, or pneumothorax seen. The cardiac silhouette s ize is upper limits of normal with atherosclerotic aorta. The osseous structures are demineralized. IMPRESSION: Chronic changes without acute pulmonary process.
[2016-10-15] MEDS ORDERED: SODIUM CHLORIDE 0.9% 1,000 ML IV ONE (16:04)
[2016-10-15] MEDS ORDERED: ACETAMINOPHEN TAB 325 MG TAB PO PRN (16:04)
[2016-10-15] MEDS ORDERED: NALOXONE 0.4 MG/ML 1 ML VIAL IV PRN (16:04)
[2016-10-15] MEDS ORDERED: ONDANSETRON 4 MG/2 ML VIAL IVP PRN (16:04)
[2016-10-15] MEDS ORDERED: MAGNESIUM HYDROXIDE 2,400 MG/10 ML CUP PO PRN (20:34)
[2016-10-15] MEDS ORDERED: NA PHOS,M-B/NA PHOS,DI-BA 133 ML ENEMA RECTAL PRN (20:34)
[2016-10-15] MEDS ORDERED: guaiFENesin 600 MG TABLET.ER PO PRN (20:34)
[2016-10-15] MEDS ORDERED: BISACODYL 10 MG SUPP RECTAL PRN (20:34)
[2016-10-15] MEDS ORDERED: ATORVASTATIN 10 MG TAB PO SCH (21:00)
[2016-10-15 21:23] LABS: Glucose,Whole Blood 150 mg/dL (75-99)
[2016-10-15] MEDS: DIVALPROEX 500 MG TABLET.DR PO SCH (22:10)
[2016-10-15] MEDS: APIXABAN 5 MG TAB PO SCH (22:10)
[2016-10-15] MEDS: NYSTATIN 100,000 UNIT/GM POWD 15 GM TOPICAL SCH (22:11)
[2016-10-15] MEDS: METOPROLOL TARTRATE 25 MG TAB PO SCH (22:11)
[2016-10-16 06:16] LABS: Glucose,Whole Blood 93 mg/dL (75-99)
[2016-10-16] MEDS ORDERED: LEVOTHYROXINE 88 MCG TAB PO SCH (06:30)
[2016-10-16] MEDS: APIXABAN 5 MG TAB PO SCH (08:26)
[2016-10-16] MEDS: METOPROLOL TARTRATE 25 MG TAB PO SCH (08:26)
[2016-10-16] MEDS: DIVALPROEX 500 MG TABLET.DR PO SCH (08:26)
[2016-10-16] MEDS: NYSTATIN 100,000 UNIT/GM POWD 15 GM TOPICAL SCH (08:55)
[2016-10-16] MEDS ORDERED: LISINOPRIL 10 MG TAB PO SCH (09:00)
[2016-10-16] MEDS ORDERED: LISINOPRIL 5 MG TAB PO SCH (09:00)
[2016-10-16] MEDS ORDERED: CEFUROXIME 250 MG TAB PO SCH (09:00)
[2016-10-16] MEDS ORDERED: SERTRALINE 50 MG TAB PO SCH (09:00)
--- NOTE | 2016-10-16 10:51 | ECHOF ---
Referral Reason:afib MEASUREMENTS -------- HEIGHT: 170.2 cm WEIGHT: 80.3 kg BP: 120/40 IVSd: 1.3 cm (0.6 - 1.1) LVIDd: 5.0 cm (3.9 - 5.3) LVPWd: 1.1 cm (0.6 - 1.1) IVSs: 1.4 cm LVIDs: 4.1 cm LVPWs: 0.9 cm LA Diam: 4.0 cm (2.7 - 3.8) LAESV Index (A-L): 41.96 ml/m MV EXCURSION: 15.965 mm (> 18.000) MV EF SLOPE: 58 mm/s (70 - 150) EPSS: 1.4 cm AV maxP.25 mmHg AV meanP.29 mmHg RAP: 5.00 mmHg RVSP: 21.28 mmHg FINDINGS -------- Atrial fibrillation. This was a technically adequate study. There is mild concentric left ventricular hypertrophy. Overall left ventricular systolic function is mildly impaired with, an EF between 45 - 50 %. Basal posterior LV wall motion is hypokinetic. Inferior basal Hypokinesis The right ventricle is normal in size. LA is severely dilated >40 ml/m2 The right atrial size is normal. There is mild aortic regurgitation. Peak/mean gradient across the Aortic Valve is 20.25mmHg / 10.29mmHg. Pt does appear to have some type of Aortic Valve Procedure possible (TAVR). Mild mitral annular calcification present. Moderate mitral regurgitation is present. Mild tricuspid regurgitation present. There is no evidence of pulmonary hypertension. The right ventricular systolic pressure, as measured by Doppler, is 21.28mmHg. There is no pulmonic regurgitation present. The aortic root size is normal. There is no pericardial effusion. CONCLUSIONS -------- 1. There is mild concentric left ventricular hypertrophy. 2. Moderate mitral regurgitation is present. 3. Mild tricuspid regurgitation present. 4. There is no evidence of pulmonary hypertension. 5. The right ventricular systolic pressure, as measured by Doppler, is 21.28mmHg. 6. The aortic root size is normal. 7. There is no pericardial effusion. 8. Overall left ventricular systolic function is mildly impaired with, an EF between 45 - 50 %. 9. Basal posterior LV wall motion is hypokinetic. 10. Inferior basal Hypokinesis 11. LA is severely dilated >40 ml/m2 12. There is mild aortic regurgitation. 13. Peak/mean gradient across the Aortic Valve is 20.25mmHg / 10.29mmHg. 14. Pt does appear to have some type of Aortic Valve Procedure possible (TAVR). 15. Mild mitral annular calcification present. PROMOTIONAL MODEL: Alexa Sahu RDCS
[2016-10-16 10:59] VITALS: RESP 16
--- NOTE | 2016-10-16 11:25 | CONS ---
DATE OF CONSULTATION: Carrie is a 81-year-old lady with history of confusion, dementia, hypertension, dyslipidemia, hypothyroidism who presented to hospital with atrial fibrillation with rapid ventricular rate and cardiology had been consulted for the same. She apparently has a positive ultrasound for DVT of the left lower extremity, comes from a senior care and had dementia. She was also found to be in atrial fibrillation with rapid ventricular rate. Past medical history is significant for hypertension, dyslipidemia, hypothyroidism. Current medications include bisacodyl, Depakote, Synthroid, Zoloft, Zocor, Prinivil and Mucinex. ALLERGIES: There are no known drug allergies. Family history is negative for premature coronary artery disease. Social history is negative for smoking. REVIEW OF SYSTEMS: I am unable to obtain from the patient. On exam, she appears presently confused, noncommunicative. Heart rate is 86 beats per minute, blood pressure 124/65, respiratory rate is 18 per minute. There is no jugular venous distention. Chest exam reveals good air entry bilaterally. Heart exam reveals first and second heart sounds, irregular rhythm, and a systolic murmur in the left lower sternal border. Abdomen is soft. Exam of the extremities did not reveal any edema. Peripheral pulses are palpable. She has mild edema over the leg. ASSESSMENT: 1. Atrial fibrillation with controlled ventricular rate. 2. Hypertension. 3. Dyslipidemia 4. Deep venous thrombosis. PLAN: The patient is being treated for the DVT with Eliquis, which should cover her atrial fibrillation. I am going to obtain a 2-D echocardiogram on her to evaluate her LV function. Continue the rest of her medications.
[2016-10-16 11:44] LABS: Glucose,Whole Blood 92 mg/dL (75-99)
--- NOTE | 2016-10-16 11:50 | HP ---
DATE OF ADMISSION: 10/15/2016 PRESENTING COMPLAINT: Left leg DVT. HISTORY OF PRESENTING COMPLAINT: This is a very pleasant 81-year-old patient, presented here from the [facility]. Patient had a Doppler ultrasound of the left lower extremity that confirmed a DVT. The patient also found to be in atrial fibrillation, admitted for the same. Patient's chronic stable medical conditions include hyperlipidemia, epilepsy, hypothyroid, hypertension, medical debility, depression, anxiety, depression, anxiety. Patient has chronic left arm and leg weakness from prior stroke, osteoarthritis. Patient was also found to be in atrial fibrillation, started on IV heparin for the same. Because of this stroke, patient has slurred speech at the baseline. REVIEW OF SYSTEMS: CONSTITUTIONAL: Tired. HEENT: None. RESPIRATORY: None. CARDIOVASCULAR: None. GASTROINTESTINAL: None. GENITOURINARY: Urinary incontinence. MUSCULOSKELETAL: Arthritic pain in the joints. DERMATOLOGICAL: None. HEMATOLOGIC: None. LYMPHATICS: None. PSYCHIATRY: None. NEUROLOGICAL: Weakness on the left side and slurred speech. Past medical history of hyperlipidemia, hypertension, myocardial infarction, osteoarthritis, seizure disorder, hypothyroid, polyneuropathy, aortic stenosis, stroke with left-sided weakness, slurred speech, hiatal hernia, diverticulosis, psoriasis, urinary incontinence. PAST SURGICAL HISTORY: Cardiac catheterization, hysterectomy, tubal ligation, bilateral cataract removal. PSYCH HISTORY: Anxiety, depression. SOCIAL HISTORY: The patient resides at [facility], needs to lift to get out of bed to the wheelchair, needs assistance with ADLs Patient has been a smoker. FAMILY HISTORY: Patient could not tell. HOME MEDICATIONS: 1. Mucinex 600 mg q.12 p.r.n. 2. Fleet enema suppository rectal daily p.r.n. 3. Depakote 500 mg p.o. b.i.d. 4. Multivitamin 1 tablet p.o. daily. 5. Milk of magnesia 30 mL p.o. daily p.r.n. 6. Prinivil 10 mg p.o. daily. 7. Synthroid 88 mcg p.o. daily. 8. Zocor 20 mg q.h.s. 9. Zoloft 50 mg p.o. daily. 10. Nystatin topical powder b.i.d. ALLERGIES: None. On examination, temperature 97.7, pulse 104, respirations 18, blood pressure 122/67, pulse ox 95% on room air. GENERAL APPEARANCE: Well built, BMI of 32.3; lying in bed, not in distress. EYES: Pupils equal. Conjunctivae normal. HEENT: Oral cavity normal. NECK: JVD not raised. Mass not palpable. RESPIRATORY: Effort normal. LUNGS: Diminished breath sounds. CARDIOVASCULAR: Heart sounds irregular. No edema. ABDOMEN: Distended, soft. Liver and spleen not palpable. LYMPHATIC: No lymph node palpable in neck or axillae. PSYCHIATRY: Patient can only answer simple questions. NEUROLOGICAL: Speech is slurred. Power on the left side is 3/5. EXTREMITIES: Left lower extremity is enlarged compared to the right. INVESTIGATIONS: White count 12, hemoglobin 11.5. Potassium 4.5, BUN 27, creatinine 1.05. UA positive for leuko esterase, WBC. Patient's EMS report does state that patient's ultrasound at the [facility] showed did show a DVT in the left lower extremity. ASSESSMENT: 1. Acute left lower extremity deep venous thrombosis on a paralyzed side, present on admission. 2. New onset atrial fibrillation, present at admission. 3. Acute urinary tract infection. 4. Hyperlipidemia. 5. Essential hypertension. 6. Primary osteoarthritis in multiple joints. 7. Chronic seizure disorder. 8. Hypothyroidism. 9. Peripheral neuropathy. 10. Prior stroke with residual dysarthria and left-sided weakness. 11. Hypothyroidism. 12. Hiatal hernia. 13. Diverticulosis. 14. Chronic urinary incontinence. 15. Obesity; body mass index greater than 30. PLAN: Patient will be started on Eliquis. It will be 10 mg twice a day for 7 days, then 5 mg a day. For the UTI, put the patient on Ceftin. Heart rate is slightly uncontrolled, just above 100. Would rather a small dose of beta tasia. Other home medications are resumed. If heart rate is controlled, patient probably can be transferred back to the [facility].
[2016-10-16] MEDS ORDERED: MULTIVITAMINS, THERA 1 EACH TAB PO SCH (12:00)
--- NOTE | 2016-10-16 12:04 | CDI ---
In responding to this query, please exercise your independent professional judgment. The [facility] Coding Staff and Clinical Documentation Specialists appreciate your assistance in clarifying documentation, maintaining compliance with coding guidelines, accurately documenting patients condition and capturing severity of illness. The fact that a question is asked does not imply that any particular answer is desired or expected. Communication forms are a method of clarifying documentation and are not made part of the Legal Health Record. Thank you in advance for your clarification. Last Revision, March 2015 Lacy Husain [address] [place] [address] Documentation Clarification Form Date: 10/16/2016 11:54:00 AM From: Basia Man CCS, CCDS Admit Date: 10/15/2016 4:50:00 PM Patient Name: Carrie Graham Visit Number: [id number] Discharge Date: Dr. James Damon: Atrial fibrillation is documented in the ED note as found on EKG per EMS. Per the cardiology consult, the patient is admitted with a LLE DVT and also was found to be in atrial fibrillation with rapid ventricular rate. History/Risk Factors: Hypertension, Dyslipidemia, CVA, Dementia from long-term, NIDDM II, Ischemic heart disease, Aortic stenosis. Clinical Indicators: Heart rate 105, 99, 92 EKG/telemetry: Atrial fibrillation with occasional PVC, rate 94. . ECHO: EF 45-50% with mildly impaired systolic function. Treatment: Heparin drip, Eliquis to cover DVT & Atrial Fibrillation. Consults: Cardiology In your professional opinion, can you please clarify the type of atrial fibrillation, if known? Chronic/Permanent Paroxysmal Persistent Other, please specify Unable to determine Please document in your progress notes and discharge summary in order to capture severity of illness and risk of mortality. Include clinical findings that support your diagnosis. FYI: Press F11 to launch patient chart Place X here if this finding has no clinical significance, is not applicable or if you are not able to provide any additional documentation. Thank You. LUKASZ
[2016-10-16 14:09] VITALS: BMI 28.6
--- NOTE | 2016-10-16 14:42 | DS ---
DATE OF ADMISSION: 10/15/2016 DATE OF DISCHARGE: 10/16/2016 FINAL DIAGNOSES: 1. Acute left lower extremity deep venous thrombosis on a paralyzed site, present on admission. 2. New-onset atrial fibrillation, present on admission, likely persistent. 3. Acute urinary tract infection. 4. Hyperlipidemia. 5. Essential hypertension. 6. Primary osteoarthritis of multiple joints, bilateral. 7. Chronic seizure disorder. 8. Hypothyroidism. 9. Peripheral neuropathy, idiopathic. 10. Prior stroke with residual dysarthria and left-sided weakness. 11. Hypothyroidism. 12. Hiatal hernia. 13. Colonic diverticulosis. 14. Chronic urinary incontinence. 15. Obesity; body mass index greater than 30. HOSPITAL COURSE: This patient was sent in from the [facility]. Ultrasound done there, as reflected on the EMS report, showed patient to have a DVT. Patient also was found to be in atrial fibrillation. Heart rate was just above 100. Hence patient's dose of ANALILIA inhibitor was cut back and beta tasia was added. Two-D echo showed EF of 45% to 50%. No thrombus was reported. Patient has moderate mitral regurgitation. Today care was discussed with Dr. Damon. Results were reviewed. On examination, left leg swelling. Heart sounds irregular. Patient will be treated with a short course of antibiotics. DISCHARGE MEDICATIONS: 1. Dulcolax rectally daily p.r.n. 2. Depakote 500 mg p.o. b.i.d. 3. Fleet Enema rectally daily p.r.n. 4. Synthroid 88 mcg p.o. daily. 5. Milk of Magnesia 30 mL p.o. daily p.r.n. 6. Multivitamin 1 tablet p.o. daily. 7. Nystatin topically b.i.d. 8. Zoloft 50 mg p.o. daily. 9. Zocor 20 mg at bedtime. 10. Mucinex 600 mg p.o. q.12 p.r.n. 11. Eliquis 10 mg p.o. b.i.d. for 7 days, then 5 mg p.o. b.i.d. for 6 months. 12. Ceftin 250 mg p.o. b.i.d. for 6 tablets. 13. Zestril 5 mg p.o. daily; new dose. 14. Lopressor 25 mg p.o. b.i.d.; new tablet. DISPOSITION: [facility]. Follow up with Dr. Campbell at [facility]. Discharge planning more than 35 minutes.
[2016-10-16 15:27] VITALS: BP 106/53; PULSE 65; TEMP 97.4
[2016-10-16] MEDS ORDERED: APIXABAN 5 MG TAB PO SCH (21:00)
[2016-10-16] MEDS ORDERED: APIXABAN 2.5 MG TABLET PO SCH (21:00)
== END 2016-10-16 16:03 | DRG 300 ==
LOC: EC 12:25 → 6SEL 16:50
PROVIDERS: ADMIT Hospitalist; ATTEND Hospitalist
DX: I82.402 Acute embolism and thrombosis of unspecified deep veins of left lower extremity (principal); I48.1 Persistent atrial fibrillation; F03.90 Unspecified dementia, unspecified severity, without behavioral disturbance, psychotic disturbance, mood disturbance, and anxiety; I69.954 Hemiplegia and hemiparesis following unspecified cerebrovascular disease affecting left non-dominant side; N39.0 Urinary tract infection, site not specified; G62.9 Polyneuropathy, unspecified; E78.5 Hyperlipidemia, unspecified; G40.909 Epilepsy, unspecified, not intractable, without status epilepticus; I69.322 Dysarthria following cerebral infarction; E11.9 Type 2 diabetes mellitus without complications; I10 Essential (primary) hypertension; M19.91 Primary osteoarthritis, unspecified site; E03.9 Hypothyroidism, unspecified; K44.9 Diaphragmatic hernia without obstruction or gangrene; F41.9 Anxiety disorder, unspecified; F32.9 Major depressive disorder, single episode, unspecified; I08.0 Rheumatic disorders of both mitral and aortic valves; L40.9 Psoriasis, unspecified; K57.30 Diverticulosis of large intestine without perforation or abscess without bleeding; R32 Unspecified urinary incontinence; E66.9 Obesity, unspecified; Z68.28 Body mass index [BMI] 28.0-28.9, adult; I25.2 Old myocardial infarction; Z90.710 Acquired absence of both cervix and uterus; Z98.42 Cataract extraction status, left eye; Z98.41 Cataract extraction status, right eye; Z87.891 Personal history of nicotine dependence; Z79.899 Other long term (current) drug therapy
CPT/HCPCS: 36415; 71020; 80053; 81001; 82550; 82553; 84443; 84484; 85025; 85610; 85730; 87077; 87086; 87186; 93005; 93306; 96365; 96366; 96368; 96376; 99285